=== PATIENT | male | born 1940 | race Caucasian/White ===

== ENCOUNTER 2016-06-25 01:46 | Emergency (ER) | payer OTHER ==
[~2016-06-25 01:46] MED LIST: ASPIRIN CHEWABL81 MG PO; ATIVAN1 MG PO; BENZONATATE200 MG PO; CILOSTAZOL100 MG PO; COREG 6.25MG6.25 MG PO; COUMADIN4 MG PO; FOLIC ACID0.4 MG PO; NITROSTAT0.4 MG PO; PRAVACHOL20 MG PO; PRILOSEC20 MG PO; ZANTAC150 MG PO; ZESTORETIC 10-1 EACH PO
[2016-06-25 02:18] LABS: BASOPHIL 0.4 % (0-2); EOSINOPHIL 2.8 % (0-7); HCT 38.6 % (42.0-52.0); HGB 12.5 g/dl (13.2-18.0); LYMPHOCYTE 33.5 % (15-48); MCHC 32.4 g/dL (32.0-36.0); MCV 92.8 fL (78.0-100.0); MPV 10.4 fL (6.0-9.5); NEUTROPHIL 55.3 % (41-80); PLT 269 K/uL (150-400); RBC 4.16 M/uL (4.70-6.00); RDW 13.7 % (11.5-14.0); WBC 7.2 K/uL (4.0-10.5)
[2016-06-25 02:22] LABS: BILIRUBIN NEGATIVE (NEGATIVE); BLOOD NEGATIVE Ery/uL (NEGATIVE); CLARITY CLEAR (CLEAR); COLOR YELLOW (YELLOW); GLUCOSE (U) NORMAL (NORMAL); KETONE (U) NEGATIVE (NEGATIVE); LEUKOCYTES NEGATIVE Leu/uL (NEGATIVE); NITRITE NEGATIVE (NEGATIVE); PROTEIN NEGATIVE (NEGATIVE); SPECIFIC GRAVITY 1.015 (1.001-1.030); UROBILINOGEN 0.2 mg/dL (0.2-1.0); pH 6.5 (5.0-9.0)
[2016-06-25 02:23] LABS: INR 1.02 (0.9-1.2); PTT 26.8 SECONDS (23.2-31.4)
[2016-06-25 02:24] LABS: D-DIMER 2.77 ug/mLFEU (0.00-0.41)
[2016-06-25 02:36] LABS: PRO-BNP 130 pg/mL (0-450); TROPONIN T < 0.010 ng/mL
[2016-06-25 02:37] LABS: ALBUMIN 4.2 g/dL (3.4-4.8); BILIRUBIN - TOTAL 0.3 mg/dL (0.1-1.0); GLOBULIN (CALCULATION) 3.3 g/dL (2.2-4.2); POTASSIUM 3.3 mmol/L (3.5-5.1); TOTAL PROTEIN 7.5 g/dL (6.4-8.3)
== END 2016-06-25 05:30 | disposition other institution (70) ==
LOC: FER 01:46
PROVIDERS: Emergency Medicine
DX: R07.9 Chest pain, unspecified (principal); R79.1 Abnormal coagulation profile; I25.10 Atherosclerotic heart disease of native coronary artery without angina pectoris; I11.9 Hypertensive heart disease without heart failure; I10 Essential (primary) hypertension; I69.30 Unspecified sequelae of cerebral infarction; Z86.718 Personal history of other venous thrombosis and embolism; Z87.891 Personal history of nicotine dependence; Z79.82 Long term (current) use of aspirin; Z79.899 Other long term (current) drug therapy; Z95.0 Presence of cardiac pacemaker; Z95.2 Presence of prosthetic heart valve; Z95.5 Presence of coronary angioplasty implant and graft
CPT/HCPCS: 36415; 71010; 80053; 81003; 83880; 84484; 85025; 85379; 85610; 85730; 93005

== ENCOUNTER 2016-08-18 02:29 | Emergency (ER) | payer OTHER ==
[2016-08-18 03:14] LABS: BASOPHIL 0.4 % (0-2); HGB 12.9 g/dl (13.2-18.0); LYMPHOCYTE 25.1 % (15-48); MCH 29.6 pg (25.0-31.0); MCHC 33.1 g/dL (32.0-36.0); MCV 89.4 fL (78.0-100.0); MONOCYTE 6.4 % (0-12); MPV 9.5 fL (6.0-9.5); NEUTROPHIL 64.1 % (41-80); PLT 230 K/uL (150-400); RBC 4.36 M/uL (4.70-6.00); RDW 15.3 % (11.5-14.0); WBC 7.7 K/uL (4.0-10.5)
[2016-08-18 03:25] LABS: INR 1.94 (0.9-1.2); PROTHROMBIN TIME 21.6 SECONDS (11.7-14.0); PTT 30.9 SECONDS (23.2-31.4)
[2016-08-18 03:34] LABS: BILIRUBIN - TOTAL 0.3 mg/dL (0.1-1.0); CREATININE 1.8 mg/dL (0.7-1.2); GLOBULIN (CALCULATION) 3.5 g/dL (2.2-4.2); POTASSIUM 4.1 mmol/L (3.5-5.1); TOTAL PROTEIN 7.5 g/dL (6.4-8.3)
[2016-08-18 03:36] LABS: CKMB 2.07 ng/mL (0.97-4.94); TROPONIN T < 0.010 ng/mL
[2016-08-18 03:43] LABS: BILIRUBIN NEGATIVE (NEGATIVE); BLOOD NEGATIVE Ery/uL (NEGATIVE); CLARITY CLEAR (CLEAR); COLOR YELLOW (YELLOW); GLUCOSE (U) NORMAL (NORMAL); KETONE (U) NEGATIVE (NEGATIVE); LEUKOCYTES NEGATIVE Leu/uL (NEGATIVE); NITRITE NEGATIVE (NEGATIVE); PROTEIN NEGATIVE (NEGATIVE); SPECIFIC GRAVITY <=1.005 (1.001-1.030); UROBILINOGEN 0.2 mg/dL (0.2-1.0)
== END 2016-08-18 04:00 | disposition home or self-care (01) ==
LOC: FER 02:29
PROVIDERS: Emergency Medicine
DX: I10 Essential (primary) hypertension (principal); J98.11 Atelectasis; Z86.73 Personal history of transient ischemic attack (TIA), and cerebral infarction without residual deficits
CPT/HCPCS: 36415; 71010; 80053; 81003; 82550; 82553; 84484; 85025; 85610; 85730; 93005

== ENCOUNTER 2016-08-22 00:46 | Emergency (ER) | payer OTHER ==
[2016-08-22 01:23] LABS: BASOPHIL 0.6 % (0-2); EOSINOPHIL 3.4 % (0-7); HCT 36.9 % (42.0-52.0); HGB 12.2 g/dl (13.2-18.0); LYMPHOCYTE 31.3 % (15-48); MCH 29.8 pg (25.0-31.0); MCHC 33.1 g/dL (32.0-36.0); MCV 90.2 fL (78.0-100.0); MONOCYTE 6.5 % (0-12); MPV 9.9 fL (6.0-9.5); NEUTROPHIL 58.2 % (41-80); PLT 262 K/uL (150-400); RBC 4.09 M/uL (4.70-6.00); RDW 15.3 % (11.5-14.0)
[2016-08-22 01:28] LABS: INR 2.54 (0.9-1.2); PROTHROMBIN TIME 26.7 SECONDS (11.7-14.0); PTT 34.3 SECONDS (23.2-31.4)
[2016-08-22 01:37] LABS: CKMB 2.41 ng/mL (0.97-4.94); PRO-BNP 122 pg/mL (0-450); TROPONIN T < 0.010 ng/mL
[2016-08-22 01:38] LABS: ALBUMIN 3.9 g/dL (3.4-4.8); BILIRUBIN - TOTAL 0.4 mg/dL (0.1-1.0); CREATININE 1.8 mg/dL (0.7-1.2); GLOBULIN (CALCULATION) 3.4 g/dL (2.2-4.2); POTASSIUM 3.8 mmol/L (3.5-5.1); TOTAL PROTEIN 7.3 g/dL (6.4-8.3)
[2016-08-22 02:28] LABS: BILIRUBIN NEGATIVE (NEGATIVE); BLOOD NEGATIVE Ery/uL (NEGATIVE); CLARITY CLEAR (CLEAR); COLOR YELLOW (YELLOW); GLUCOSE (U) NORMAL (NORMAL); KETONE (U) NEGATIVE (NEGATIVE); LEUKOCYTES NEGATIVE Leu/uL (NEGATIVE); NITRITE NEGATIVE (NEGATIVE); PROTEIN NEGATIVE (NEGATIVE); SPECIFIC GRAVITY <=1.005 (1.001-1.030); UROBILINOGEN 0.2 mg/dL (0.2-1.0)
== END 2016-08-22 03:00 | disposition home or self-care (01) ==
LOC: FER 00:46
PROVIDERS: Emergency Medicine Emergency Medical Services
DX: I12.9 Hypertensive chronic kidney disease with stage 1 through stage 4 chronic kidney disease, or unspecified chronic kidney disease (principal); N18.3 Chronic kidney disease, stage 3 (moderate); I44.7 Left bundle-branch block, unspecified; K21.9 Gastro-esophageal reflux disease without esophagitis; J44.9 Chronic obstructive pulmonary disease, unspecified; Z95.0 Presence of cardiac pacemaker; Z95.2 Presence of prosthetic heart valve; Z79.01 Long term (current) use of anticoagulants; Z79.899 Other long term (current) drug therapy; Z86.73 Personal history of transient ischemic attack (TIA), and cerebral infarction without residual deficits; Z91.041 Radiographic dye allergy status
CPT/HCPCS: 36415; 70450; 71010; 80053; 81003; 82550; 82553; 83880; 84484; 85025; 85610; 85730; 93005

== ENCOUNTER 2020-08-27 19:12 | Emergency (ER) | payer OTHER ==
[2020-08-27 20:21] LABS: BASOPHIL 0.5 % (0-2); EOSINOPHIL 3.3 % (0-7); HCT 34.7 % (42.0-52.0); HGB 11.3 g/dl (13.2-18.0); LYMPHOCYTE 15.7 % (15-48); MCHC 32.6 g/dL (32.0-36.0); MCV 98.3 fL (78.0-100.0); MONOCYTE 4.7 % (0-12); MPV 10.6 fL (6.0-9.5); NEUTROPHIL 75.3 % (41-80); NRBC 0; PLT 254 K/uL (150-400); RBC 3.53 M/uL (4.70-6.00); RDW 14.1 % (11.5-14.0); WBC 9.6 K/uL (4.0-10.5)
[2020-08-27 20:29] LABS: BILIRUBIN NEGATIVE (NEGATIVE); BLOOD 3+ Ery/uL (NEGATIVE); CLARITY CLOUDY (CLEAR); COLOR RED (YELLOW); GLUCOSE (U) NORMAL (NORMAL); LEUKOCYTES 1+ Leu/uL (NEGATIVE); NITRITE NEGATIVE (NEGATIVE); PROTEIN 2+ mg/dL (NEGATIVE); SPECIFIC GRAVITY 1.015 (1.001-1.030); UROBILINOGEN 0.2 mg/dL (0.2-1.0)
[2020-08-27 20:30] LABS: URINARY RBC TNTC
[2020-08-27 20:31] LABS: INR 1.21 (0.9-1.2); PROTHROMBIN TIME 14.5 SECONDS (11.4-13.6); PTT 31.7 SECONDS (22.2-34.7)
[2020-08-27 20:38] LABS: ALBUMIN 2.9 g/dL (3.4-5.0); BILIRUBIN - TOTAL 0.4 mg/dL (0.2-1.0); BUN/CREAT RATIO (CALC) 11.4 RATIO; CREATININE 1.67 mg/dL (0.67-1.17); GLOBULIN (CALCULATION) 4.3 g/dL; POTASSIUM 3.2 mmol/L (3.5-5.1); TOTAL PROTEIN 7.2 g/dL (6.4-8.2)
[2020-08-27 20:48] LABS: LACTIC ACID 1.9 mmol/L (0.4-1.9)
[2020-08-27] MEDS ORDERED: MACROBID100 MG PO (22:39)
== END 2020-08-27 23:13 | disposition home or self-care (01) ==
LOC: FER 19:12
PROVIDERS: Emergency Medicine Emergency Medical Services
DX: R31.0 Gross hematuria (principal); R60.0 Localized edema; I10 Essential (primary) hypertension; J44.9 Chronic obstructive pulmonary disease, unspecified; Z87.442 Personal history of urinary calculi; Z95.0 Presence of cardiac pacemaker; Z79.01 Long term (current) use of anticoagulants; Z91.041 Radiographic dye allergy status
CPT/HCPCS: 36415; 80053; 81001; 83605; 84145; 85025; 85610; 85730; 87088; J7030